=== PATIENT | male | born 1965 | race Caucasian/White ===

== ENCOUNTER 2017-05-18 09:22 | Day surgery (SDC) | payer OTHER ==
[~2017-05-18] VITALS: Ht 172.7 cm; Wt 88.1 kg
[~2017-05-18 09:22] MED LIST: ACET325T14 PO; IBUP-1223 PO
[2017-05-18] MEDS ORDERED: LACTATED RINGERS 1,000 ML IV SCH (09:43)
[2017-05-18 10:05] VITALS: BP 125/86
[2017-05-18] MEDS ORDERED: MIDAZOLAM 1 MG/ML, 2ML ONE (11:25)
[2017-05-18] MEDS ORDERED: PROPOFOL 50 ML ONE (11:25)
[2017-05-18] MEDS ORDERED: ACETAMINOPHEN 650 MG/20.3 ML UDC ONE (13:21)
[2017-05-18] MEDS ORDERED: PROMETHAZINE 25 MG/ML, 1ML IV PRN (13:30)
[2017-05-18] MEDS ORDERED: ONDANSETRON 2MG/ML, 2ML IVPush PRN (13:30)
[2017-05-18] MEDS ORDERED: ACETAMINOPHEN 325 MG TABLET PO PRN (13:30)
[2017-05-18] MEDS ORDERED: MEPERIDINE/PF 25MG/0.5ML IVPush PRN (13:30)
[2017-05-18] MEDS ORDERED: FENTANYL PF 100 MCG/2ML IV PRN (13:30)
== END 2017-05-18 15:10 | disposition home or self-care (01) ==
LOC: OUT 09:22
PROVIDERS: ATTEND Internal Medicine
DX: C21.0 Malignant neoplasm of anus, unspecified (principal); K62.6 Ulcer of anus and rectum; Z90.49 Acquired absence of other specified parts of digestive tract; Z72.89 Other problems related to lifestyle; Z88.5 Allergy status to narcotic agent
CPT/HCPCS: 45341; J2250; J2704; J7120

== ENCOUNTER → 2017-05-23 | Outpatient (CLI) | payer OTHER | END | disposition home or self-care (01) | LOC: CARD 14:58 | PROVIDERS: ATTEND Internal Medicine Hematology & Oncology | DX: C20 Malignant neoplasm of rectum (principal) | CPT/HCPCS: 94010; 94726; 94729 ==

== ENCOUNTER 2017-05-24 07:06 | Day surgery (SDC) | payer OTHER ==
[~2017-05-24] VITALS: Ht 172.7 cm; Wt 92.0 kg
[2017-05-24] MEDS ORDERED: LIDOCAINE 1%, 20ML ONE (07:53)
[2017-05-24] MEDS ORDERED: PLEASE ENTER HEIGHT AND WEIGHT MC SCH (08:00)
[2017-05-24] MEDS ORDERED: CEFAZOLIN 1,000 MG IM ONE (08:00)
[2017-05-24] MEDS ORDERED: SODIUM CHLORIDE 0.9% 1,000 ML IV SCH ×2 (08:00→08:07)
[2017-05-24] MEDS ORDERED: MIDAZOLAM 1 MG/ML, 2ML ONE ×2 (08:07)
[2017-05-24] MEDS ORDERED: FENTANYL PF 100 MCG/2ML ONE (08:07)
[2017-05-24] MEDS ORDERED: FLUMAZENIL 0.1 MG/1 ML, 5ML ONE (08:07)
[2017-05-24] MEDS ORDERED: NALOXONE 1 MG/ML, 2ML ONE (08:07)
[2017-05-24] MEDS ORDERED: CEFAZOLIN 1,000 MG IVPB ONE (08:30)
[2017-05-24] MEDS ORDERED: CEFAZOLIN PMX 1GM/50ML 50 ML IVPB ONE ×2 (08:30)
[2017-05-24] MEDS ORDERED: HYDROcodone/APAP 5/325 TABLET ONE (10:20)
[2017-05-24] MEDS ORDERED: HYDROcodone/APAP 5/325 TABLET PO ONE (10:30)
== END 2017-05-24 11:00 ==
LOC: OUT 07:06
PROVIDERS: ATTEND Internal Medicine Hematology & Oncology
DX: Z45.2 Encounter for adjustment and management of vascular access device (principal); C20 Malignant neoplasm of rectum; G43.909 Migraine, unspecified, not intractable, without status migrainosus; Z88.5 Allergy status to narcotic agent; Z90.49 Acquired absence of other specified parts of digestive tract; Z98.890 Other specified postprocedural states
CPT/HCPCS: 36561; 76937; 77001; 99156; 99157; C1788; C1894; J0690; J1642; J2250; J3010; J3490; J7030; J2310

== ENCOUNTER → 2017-05-25 | Outpatient (CLI) | payer OTHER | LOC: ROC 12:56 | PROVIDERS: ATTEND Radiology Radiation Oncology | DX: C21.0 Malignant neoplasm of anus, unspecified (principal) | CPT/HCPCS: 99214; G0463 ==

== ENCOUNTER → 2017-05-29 | Outpatient (CLI) | payer OTHER ==
[~2017-05-29] MED LIST changes: +OMNIPAQUE 350 MG/ML, 100ML BOTTLE ONE
== END | disposition home or self-care (01) ==
LOC: RAD 11:17
PROVIDERS: ATTEND Internal Medicine Hematology & Oncology
DX: K76.9 Liver disease, unspecified (principal); Z90.49 Acquired absence of other specified parts of digestive tract; C21.2 Malignant neoplasm of cloacogenic zone; C21.8 Malignant neoplasm of overlapping sites of rectum, anus and anal canal; C20 Malignant neoplasm of rectum
CPT/HCPCS: 71260; 74177; Q9967

== ENCOUNTER → 2017-06-06 | Outpatient (CLI) | payer OTHER | END | disposition home or self-care (01) | LOC: RAD 15:39 | PROVIDERS: ATTEND Radiology Radiation Oncology | DX: N32.3 Diverticulum of bladder (principal); C21.0 Malignant neoplasm of anus, unspecified; K61.0 Anal abscess | CPT/HCPCS: 72193; Q9967 ==

== ENCOUNTER → 2017-06-14 | Outpatient (CLI) | payer OTHER ==
[~2017-06-14] MED LIST changes: -OMNIPAQUE 350 MG/ML, 100ML BOTTLE ONE
== END | disposition home or self-care (01) ==
LOC: PETCFH 12:23
PROVIDERS: ATTEND Radiology Radiation Oncology
DX: K62.89 Other specified diseases of anus and rectum (principal); K21.0 Gastro-esophageal reflux disease with esophagitis
CPT/HCPCS: 78815; A9552

== ENCOUNTER → 2017-09-20 | Outpatient (CLI) | payer OTHER | END | disposition home or self-care (01) | LOC: PETCFH 07:13 | PROVIDERS: ATTEND Radiology Radiation Oncology | DX: C21.0 Malignant neoplasm of anus, unspecified (principal); R19.00 Intra-abdominal and pelvic swelling, mass and lump, unspecified site | CPT/HCPCS: A9552 ==

== ENCOUNTER → 2017-10-19 | Outpatient (CLI) | payer OTHER | END | disposition home or self-care (01) | LOC: ROC 08:10 | PROVIDERS: ATTEND Radiology Radiation Oncology | DX: C21.0 Malignant neoplasm of anus, unspecified (principal) | CPT/HCPCS: 99213; G0463 ==

== ENCOUNTER 2017-10-31 07:50 | Day surgery (SDC) | payer OTHER ==
[~2017-10-31] VITALS: Ht 172.7 cm; Wt 91.4 kg
[2017-10-31 08:55] VITALS: BP 129/83
[2017-10-31] MEDS ORDERED: SODIUM CHLORIDE 0.9% 1,000 ML IV SCH (09:14)
[2017-10-31] MEDS ORDERED: LIDOCAINE-MPF 2%, 2ML ONE ×2 (09:40→10:09)
[2017-10-31] MEDS ORDERED: FENTANYL PF 100 MCG/2ML ONE (09:50)
[2017-10-31] MEDS ORDERED: MIDAZOLAM 1 MG/ML, 5ML ONE (09:50)
[2017-10-31] MEDS ORDERED: NALOXONE 1 MG/ML, 2ML ONE (09:51)
[2017-10-31] MEDS ORDERED: FLUMAZENIL 0.1 MG/1 ML, 5ML ONE (09:51)
== END 2017-10-31 11:47 | disposition home or self-care (01) ==
LOC: OUT 07:50
PROVIDERS: ATTEND Radiology Radiation Oncology
DX: Z45.2 Encounter for adjustment and management of vascular access device (principal); C21.0 Malignant neoplasm of anus, unspecified; Z88.5 Allergy status to narcotic agent; Z72.89 Other problems related to lifestyle
CPT/HCPCS: 36590; 77001; 99156; 99157; J2250; J3010; J3490; J7030; J2310

== ENCOUNTER 2017-12-04 05:09 | Day surgery (SDC) | payer OTHER ==
[2017-11-28 13:03] VITALS: BP 116/79
[~2017-12-04] VITALS: Ht 172.7 cm; Wt 89.5 kg
[2017-12-04] MEDS ORDERED: LACTATED RINGERS 1,000 ML IV SCH (05:51)
[2017-12-04 05:54] VITALS: BP 116/79
[2017-12-04] MEDS ORDERED: LIDOCAINE-MPF 1%, 2ML INFIL ONE (06:00)
[2017-12-04] MEDS ORDERED: DEXAMETHASONE 4 MG/ML, 1ML ONE (07:47)
[2017-12-04] MEDS ORDERED: CEFAZOLIN 1,000 MG ONE (07:47)
[2017-12-04] MEDS ORDERED: PROPOFOL 10 MG/ML, 20ML ONE (07:47)
[2017-12-04] MEDS ORDERED: MEPERIDINE/PF 25MG/0.5ML IVPush PRN (08:30)
[2017-12-04] MEDS ORDERED: OXYcodone 5 MG/5 ML ORAL.SOL UDC PO PRN (08:30)
[2017-12-04] MEDS ORDERED: LORazepam 2 MG/ML, 1ML IVPush PRN (08:30)
[2017-12-04] MEDS ORDERED: LABETALOL 5MG/ML, 20ML IV PRN (08:30)
[2017-12-04] MEDS ORDERED: PROMETHAZINE 25 MG/ML, 1ML IV PRN (08:30)
[2017-12-04] MEDS ORDERED: hydrALAzine 20 MG/ML, 1ML IV PRN (08:30)
[2017-12-04] MEDS ORDERED: EPHEDRINE 50 MG/ML, 1ML IVPush PRN (08:30)
[2017-12-04] MEDS ORDERED: ACETAMINOPHEN 325 MG TABLET PO PRN (08:30)
[2017-12-04] MEDS ORDERED: ONDANSETRON ODT 8 MG PO PRN (08:30)
[2017-12-04] MEDS ORDERED: PROMETHAZINE 12.5 MG SUPP PR PRN (08:30)
[2017-12-04] MEDS ORDERED: MIDAZOLAM 1 MG/ML, 2ML IV PRN (08:30)
[2017-12-04] MEDS ORDERED: ALBUTEROL SULFATE 2.5 MG/3 ML NPPB PRN (08:30)
[2017-12-04] MEDS ORDERED: ONDANSETRON 2MG/ML, 2ML IV PRN (08:30)
[2017-12-04] MEDS ORDERED: FENTANYL PF 100 MCG/2ML IV PRN (08:30)
[2017-12-04] MEDS ORDERED: HYDROmorphone 1 MG/ML, 1ML IV PRN (08:30)
== END 2017-12-04 09:50 | disposition home or self-care (01) ==
LOC: OUT 05:09
PROVIDERS: ATTEND Internal Medicine
DX: C21.0 Malignant neoplasm of anus, unspecified (principal); Z90.49 Acquired absence of other specified parts of digestive tract; Z72.89 Other problems related to lifestyle; Z88.5 Allergy status to narcotic agent; Z88.8 Allergy status to other drugs, medicaments and biological substances
CPT/HCPCS: 45392; 88305; J0690; J1100; J2704; J7120

== ENCOUNTER → 2018-02-28 | Outpatient (CLI) | payer OTHER | END | disposition home or self-care (01) | LOC: ROC 10:16 | PROVIDERS: ATTEND Radiology Radiation Oncology | DX: Z08 Encounter for follow-up examination after completed treatment for malignant neoplasm (principal); C21.0 Malignant neoplasm of anus, unspecified; Z88.6 Allergy status to analgesic agent | CPT/HCPCS: 99212; G0463 ==

== ENCOUNTER 2018-04-17 09:37 | Outpatient (CLI) | payer OTHER | END 2018-04-17 23:59 | disposition home or self-care (01) | LOC: ROC 09:37 | PROVIDERS: ATTEND Radiology Radiation Oncology | DX: C21.0 Malignant neoplasm of anus, unspecified (principal) | CPT/HCPCS: 99213; G0463 ==

== ENCOUNTER → 2018-09-12 | Outpatient (CLI) | payer OTHER ==
[~2018-09-12] MED LIST changes: +OMNIPAQUE 350 MG/ML, 100ML BOTTLE ONE
== END | disposition home or self-care (01) ==
LOC: CFH 14:02
PROVIDERS: ATTEND Radiology Radiation Oncology
DX: K76.9 Liver disease, unspecified (principal); C21.0 Malignant neoplasm of anus, unspecified
CPT/HCPCS: 71260; 74177; Q9967

== ENCOUNTER → 2018-09-24 | Outpatient (CLI) | payer OTHER ==
[~2018-09-24] MED LIST changes: -OMNIPAQUE 350 MG/ML, 100ML BOTTLE ONE
== END | disposition home or self-care (01) ==
LOC: ROC 08:34
PROVIDERS: ATTEND Radiology Radiation Oncology
DX: C21.0 Malignant neoplasm of anus, unspecified (principal)
CPT/HCPCS: 99213; G0463

== ENCOUNTER 2019-09-21 17:32 | Inpatient (IN) | payer OTHER ==
[~2019-09-21] VITALS: Ht 172.7 cm; Wt 83.7 kg
[~2019-09-21 17:32] MED LIST changes: +GABA300C10 PO; +ZOLP10TA PO
--- NOTE | 2019-09-21 17:58 | NUR ---
54 YR OLD MALE TO ROOM FROM TRIAGE, PER PTS SLURRED SPEECH BEGAN ABOUT 4PM, PT WITH C/O VOMITING, SLURRED SPEECH, LEFT FACE DROOPING (APPROX 1 HR AGO), CP.
--- NOTE | 2019-09-21 18:03 | NUR ---
PT TO CT VIA [facility]
[2019-09-21] MEDS ORDERED: DIPHENHYDRAMINE 50 MG/ML, 1ML IV STA (18:12)
[2019-09-21 18:13] LABS: BASOPHILS # (AUTO) 0.01 x10^3/uL (0-0.1); BASOPHILS % (AUTO) 0 % (0-1); EOSINOPHILS # (AUTO) 0.19 x10^3/uL (0-0.4); EOSINOPHILS % (AUTO) 4 % (1-7); LYMPHOCYTES # (AUTO) 0.78 x10^3/uL (1-3.4); LYMPHOCYTES % (AUTO) 15 % (22-44); MD NO; MEAN CORPUSCULAR HEMOGLOBIN 31.1 pg (27.5-34.5); MEAN CORPUSCULAR HGB CONC 34.3 g/dL (33.2-36.2); MEAN CORPUSCULAR VOLUME 90.6 fL (81-97); MEAN PLATELET VOLUME 7.3 fL (7.4-10.4); MONOCYTES # (AUTO) 0.23 x10^3/uL (0.2-0.8); MONOCYTES % (AUTO) 5 % (2-9); NEUTROPHILS # (AUTO) 3.99 x10^3/uL (1.8-6.8); NEUTROPHILS % (AUTO) 77 % (42-75); PLATELET COUNT 267 x10^3/uL (130-400); RED BLOOD COUNT 4.68 x10^6/uL (4.38-5.82); RED CELL DISTRIBUTION WIDTH 12.6 % (9.4-14.8)
--- NOTE | 2019-09-21 18:13 | NUR ---
DR GARCIA VIA [facility] TALKING TO PTS
--- NOTE | 2019-09-21 18:14 | NUR ---
PT RETURN TO ROOM
[2019-09-21 18:23] LABS: INTERNATIONAL NORMALIZED RATIO 0.92 (0.93-1.1); PROTHROMBIN TIME 9.7 Seconds (9.6-11.5)
[2019-09-21] MEDS ORDERED: OMNIPAQUE 350 MG/ML, 100ML BOTTLE ONE (18:24)
[2019-09-21] MEDS ORDERED: DEXAMETHASONE 4 MG/ML, 1ML IVPush STA (18:26)
[2019-09-21] MEDS ORDERED: PROCHLORPERAZINE 5 MG/ML, 2ML IVPush STA (18:26)
[2019-09-21] MEDS ORDERED: BUTA-177 PO (18:34)
[2019-09-21] MEDS ORDERED: PREG75CA PO (18:34)
--- NOTE | 2019-09-21 18:46 | NUR ---
PER PT, HAD A MIGRAINE THIS AM (04) TOOK [place] AND IT WENT AWAY. DENIES [facility]AR[facility] AT THIS TIME
--- NOTE | 2019-09-21 18:51 | NUR ---
REPORT TO [facility]
[2019-09-21] MEDS ORDERED: DIPHENHYDRAMINE 50 MG/ML, 1ML ONE (18:53)
[2019-09-21] MEDS ORDERED: DEXAMETHASONE 4 MG/ML, 1ML ONE (18:53)
[2019-09-21] MEDS ORDERED: PROCHLORPERAZINE 5 MG/ML, 2ML ONE (18:53)
--- NOTE | 2019-09-21 19:06 | NUR ---
REPORT FROM [facility] ASSUMED CARE OF PT AT THIS TIME MEDICATED PER MD ORDER
--- NOTE | 2019-09-21 19:15 | NUR ---
MRI FORM COMPLETE AND FAXED TO MRI
--- NOTE | 2019-09-21 19:36 | NUR ---
PT TO IMAGING AT THIS TIME
[2019-09-21] MEDS ORDERED: ASPIRIN 325 MG TABLET PO STA (19:38)
[2019-09-21] MEDS ORDERED: ASPIRIN 325 MG TABLET ONE (19:54)
[2019-09-21 19:55] LABS: TROPONIN I < 0.015 ng/mL (0.000-0.045)
--- NOTE | 2019-09-21 20:03 | NUR ---
PT BACK FROM MRI, ANGELICA SANTOS AT BS FOR ADMIT
[2019-09-21] MEDS ORDERED: DOCUSATE 100 MG CAPSULE PO PRN (20:30)
[2019-09-21] MEDS ORDERED: POLYETHYLENE GLYCOL 17 GM PACKET PO PRN (20:30)
[2019-09-21] MEDS ORDERED: BISACODYL 10 MG SUPP PR PRN (20:30)
[2019-09-21] MEDS ORDERED: ACETAMINOPHEN 650 MG/20.3 ML UDC PO PRN (20:30)
[2019-09-21] MEDS ORDERED: SENNA/DOCUSATE TABLET PO PRN (20:30)
[2019-09-21] MEDS ORDERED: ONDANSETRON 2MG/ML, 2ML IVPush PRN (20:30)
[2019-09-21] MEDS ORDERED: ZOLPIDEM 10MG TABLET PO PRN (20:30)
--- NOTE | 2019-09-21 20:49 | NUR ---
REPORT TO TRUMAN RIZZO TO CARD TELE WITH TECH
[2019-09-21] MEDS ORDERED: SODIUM CHLORIDE 0.9% 500 ML IV SCH (21:00)
[2019-09-21 21:06] VITALS: BP 131/82
[2019-09-21] MEDS: PREGABALIN 75 MG CAPSULE PO SCH (23:39)
[2019-09-21] MEDS: ATORVASTATIN 80 MG TABLET PO SCH (23:39)
[2019-09-21] MEDS: HEPARIN 5,000 UNITS/ML, 1ML SQ SCH (23:40)
[2019-09-22 01:27] LABS: TROPONIN I < 0.015 ng/mL (0.000-0.045)
[2019-09-22 02:00] VITALS: BP 117/76
[2019-09-22] MEDS: BUTALB/APAP/CAFFEINE 50MG/325MG/40MG PO PRN ×2 (03:38→17:35)
[2019-09-22 06:26] LABS: BASOPHILS # (AUTO) 0.01 x10^3/uL (0-0.1); BASOPHILS % (AUTO) 0 % (0-1); EOSINOPHILS # (AUTO) 0.03 x10^3/uL (0-0.4); EOSINOPHILS % (AUTO) 0 % (1-7); LYMPHOCYTES # (AUTO) 0.57 x10^3/uL (1-3.4); LYMPHOCYTES % (AUTO) 8 % (22-44); MD NO; MEAN CORPUSCULAR HEMOGLOBIN 30.6 pg (27.5-34.5); MEAN CORPUSCULAR HGB CONC 33.5 g/dL (33.2-36.2); MEAN CORPUSCULAR VOLUME 91.3 fL (81-97); MEAN PLATELET VOLUME 7.3 fL (7.4-10.4); MONOCYTES # (AUTO) 0.21 x10^3/uL (0.2-0.8); MONOCYTES % (AUTO) 3 % (2-9); NEUTROPHILS # (AUTO) 6.08 x10^3/uL (1.8-6.8); NEUTROPHILS % (AUTO) 88 % (42-75); PLATELET COUNT 256 x10^3/uL (130-400); RED BLOOD COUNT 4.57 x10^6/uL (4.38-5.82); RED CELL DISTRIBUTION WIDTH 12.5 % (9.4-14.8)
[2019-09-22 06:38] VITALS: BP 128/85
[2019-09-22 06:50] LABS: ALANINE AMINOTRANSFERASE 31 U/L (12-78); ALBUMIN 3.5 g/dL (3.4-5.0); ANION GAP 11 mmol/L (5-15); CALCIUM 8.9 mg/dL (8.5-10.1); CHLORIDE 107 mmol/L (98-107); CHOLESTEROL, TOTAL 223 mg/dL (140-239); CREATININE 1.05 mg/dL (0.7-1.3)
[2019-09-22 06:54] LABS: ALKALINE PHOSPHATASE 54 U/L (45-117); BILIRUBIN,TOTAL 0.9 mg/dL (0.2-1.0); CHOL/HDL RATIO 4.4; HDL CHOL % 23 % (26-37); HDL CHOLESTEROL (DIRECT) 51 mg/dL (40-60); LDL CHOLESTEROL,CALCULATED 140 mg/dL (54-169); LDL/HDL RATIO 2.7 (0.5-3.0); TRIGLYCERIDES 158 mg/dL (50-200); TROPONIN I < 0.015 ng/mL (0.000-0.045); VLDL CHOLESTEROL 32 mg/dL (0-25)
[2019-09-22] MEDS: ASPIRIN 81 MG TABLET CHEW PO/NG SCH (08:30)
[2019-09-22] MEDS: HEPARIN 5,000 UNITS/ML, 1ML SQ SCH ×2 (08:31→15:49)
[2019-09-22 12:07] VITALS: BP 134/77
[2019-09-22 19:44] VITALS: BP 114/79
[2019-09-22] MEDS: PREGABALIN 75 MG CAPSULE PO SCH (20:53)
[2019-09-22] MEDS: ATORVASTATIN 80 MG TABLET PO SCH (20:53)
[2019-09-23] MEDS: HEPARIN 5,000 UNITS/ML, 1ML SQ SCH ×2 (00:09→07:52)
[2019-09-23 00:22] VITALS: BP 119/78
[2019-09-23 07:19] VITALS: BP 136/89
[2019-09-23] MEDS: ASPIRIN 81 MG TABLET CHEW PO/NG SCH (07:52)
[2019-09-23] MEDS ORDERED: REGADENOSON 0.4 MG/5 ML SYRINGE ONE (08:09)
[2019-09-23] MEDS ORDERED: THIAMINE 100MG TABLET PO SCH (09:00)
[2019-09-23] MEDS ORDERED: FOLIC ACID 1 MG TABLET PO SCH (09:00)
[2019-09-23 12:20] VITALS: BP 132/90
[2019-09-23] MEDS ORDERED: ATOR20TA37 PO (15:17)
[2019-09-23] MEDS ORDERED: ASPI-430 PO (15:17)
== END 2019-09-23 16:00 | disposition home or self-care (01) | DRG 102 ==
LOC: ED 19:55 → EDIP 21:05 → 5SO 21:06 → DCLOUNGE 09-23 15:49
PROVIDERS: ADMIT Internal Medicine; ATTEND Internal Medicine
DX: G43.109 Migraine with aura, not intractable, without status migrainosus (principal); N17.0 Acute kidney failure with tubular necrosis; R07.89 Other chest pain; R29.706 NIHSS score 6; F10.10 Alcohol abuse, uncomplicated; E78.5 Hyperlipidemia, unspecified; R73.9 Hyperglycemia, unspecified; G62.9 Polyneuropathy, unspecified; R29.810 Facial weakness; Z90.49 Acquired absence of other specified parts of digestive tract; Z88.5 Allergy status to narcotic agent; Z82.5 Family history of asthma and other chronic lower respiratory diseases; X50.0XXA Overexertion from strenuous movement or load, initial encounter; Z85.048 Personal history of other malignant neoplasm of rectum, rectosigmoid junction, and anus
CPT/HCPCS: 36415; 70450; 70496; 70498; 70551; 71045; 78452; 80047; 80053; 80061; 83036; 84484; 85025; 85610; 85730; 93005; 93017; 93306; 96374; 96375; 99285; G0378; J1100; J1644; J2785; Q9967; 92523-GN; A9502; C9898; J0780; J1200; J7040

== ENCOUNTER → 2019-11-28 | Outpatient (CLI) | payer OTHER ==
[~2019-11-28] MED LIST changes: +ASPI-430 PO; +ATOR20TA37 PO; +BUTA-177 PO; +PREG75CA PO
== END | disposition home or self-care (01) ==
LOC: STAR 14:59
PROVIDERS: ATTEND Anesthesiology
DX: Z01.812 Encounter for preprocedural laboratory examination (principal); Z20.828 Contact with and (suspected) exposure to other viral communicable diseases
CPT/HCPCS: 36415; 87635

== ENCOUNTER 2019-12-03 05:51 | Day surgery (SDC) | payer OTHER ==
[~2019-12-03] VITALS: Ht 172.7 cm; Wt 87.3 kg
[2019-12-03] MEDS ORDERED: VERA100C4 PO (06:16)
[2019-12-03] MEDS ORDERED: ASPI-515 PO (06:16)
[2019-12-03 06:23] VITALS: BP 145/92
[2019-12-03] MEDS ORDERED: CHLORHEXIDINE 15 ML UDC MM STA (06:36)
[2019-12-03] MEDS ORDERED: LACTATED RINGERS 1,000 ML IV SCH (06:36)
[2019-12-03] MEDS ORDERED: MIDAZOLAM 1 MG/ML, 2ML ONE (07:43)
[2019-12-03] MEDS ORDERED: EPHEDRINE 50 MG/ML, 1ML ONE (07:43)
[2019-12-03] MEDS ORDERED: PROPOFOL 10 MG/ML, 20ML ONE (07:43)
[2019-12-03] MEDS ORDERED: DEXAMETHASONE 4 MG/ML, 5ML ONE (07:43)
[2019-12-03] MEDS ORDERED: MIDAZOLAM 1 MG/ML, 2ML IV PRN (08:00)
[2019-12-03] MEDS ORDERED: ACETAMINOPHEN 325 MG TABLET PO PRN (08:00)
[2019-12-03] MEDS ORDERED: LABETALOL 5MG/ML, 20ML IV PRN (08:00)
[2019-12-03] MEDS ORDERED: DIPHENHYDRAMINE 50 MG/ML, 1ML IVPush PRN (08:00)
[2019-12-03] MEDS ORDERED: FENTANYL PF 100 MCG/2ML IV PRN (08:00)
[2019-12-03] MEDS ORDERED: OXYcodone 5 MG/5 ML ORAL.SOL UDC PO PRN (08:00)
[2019-12-03] MEDS ORDERED: DIAZEPAM 5 MG/ML, 2ML IVPush PRN (08:00)
[2019-12-03] MEDS ORDERED: MEPERIDINE/PF 25MG/0.5ML IVPush PRN (08:00)
[2019-12-03] MEDS ORDERED: ALBUTEROL SULFATE 2.5 MG/3 ML NPPB PRN (08:00)
[2019-12-03] MEDS ORDERED: PROMETHAZINE 12.5 MG SUPP PR PRN (08:00)
[2019-12-03] MEDS ORDERED: HYDROmorphone 1 MG/ML, 1ML INJ IVPush PRN (08:00)
[2019-12-03] MEDS ORDERED: EPHEDRINE 50 MG/ML, 1ML IVPush PRN (08:00)
[2019-12-03] MEDS ORDERED: hydrALAzine 20 MG/ML, 1ML IV PRN (08:00)
[2019-12-03] MEDS ORDERED: PROMETHAZINE 25 MG/ML, 1ML IVPush PRN (08:00)
[2019-12-03] MEDS ORDERED: ONDANSETRON 2MG/ML, 2ML IVPush PRN (08:00)
== END 2019-12-03 09:15 | disposition home or self-care (01) ==
LOC: OUT 05:51
PROVIDERS: ATTEND Internal Medicine
DX: Z08 Encounter for follow-up examination after completed treatment for malignant neoplasm (principal); G43.909 Migraine, unspecified, not intractable, without status migrainosus; N42.9 Disorder of prostate, unspecified; Z72.89 Other problems related to lifestyle; Z85.048 Personal history of other malignant neoplasm of rectum, rectosigmoid junction, and anus; Z88.5 Allergy status to narcotic agent; Z91.011 Allergy to milk products; Z92.21 Personal history of antineoplastic chemotherapy
CPT/HCPCS: 45341; J1100; J2250; J2704; J7120

== ENCOUNTER 2020-11-23 06:44 | Day surgery (SDC) | payer OTHER ==
[~2020-11-23] VITALS: Ht 172.7 cm; Wt 89.0 kg
[~2020-11-23 06:44] MED LIST changes: +ASPI-963 PO; +VERA100C4 PO
[2020-11-23] MEDS ORDERED: ASPI81TA45 PO (07:37)
[2020-11-23] MEDS ORDERED: ASPI1TAB31 PO (07:38)
[2020-11-23 07:42] VITALS: BP 136/89
[2020-11-23] MEDS ORDERED: CHLORHEXIDINE 15 ML UDC ONE (07:43)
[2020-11-23] MEDS ORDERED: CHLORHEXIDINE 15 ML UDC PO ONE (08:00)
[2020-11-23] MEDS ORDERED: LACTATED RINGERS 1,000 ML IV SCH (08:00)
[2020-11-23] MEDS ORDERED: omeprozole PO (08:08)
[2020-11-23] MEDS ORDERED: PROPOFOL 10 MG/ML, 20ML ONE (08:44)
[2020-11-23] MEDS ORDERED: morphine SULFATE 10 MG/ML, 1ML IVPush PRN (09:00)
[2020-11-23] MEDS ORDERED: HYDROmorphone 1 MG/ML, 1ML INJ IVPush PRN (09:00)
[2020-11-23] MEDS ORDERED: FENTANYL PF 100 MCG/2ML IV PRN (09:00)
== END 2020-11-23 10:30 | disposition home or self-care (01) ==
LOC: OUT 06:44
PROVIDERS: ATTEND Internal Medicine Geriatric Medicine
DX: C21.0 Malignant neoplasm of anus, unspecified (principal); K57.30 Diverticulosis of large intestine without perforation or abscess without bleeding; N42.89 Other specified disorders of prostate; K21.9 Gastro-esophageal reflux disease without esophagitis; G43.909 Migraine, unspecified, not intractable, without status migrainosus; G62.9 Polyneuropathy, unspecified; Z79.1 Long term (current) use of non-steroidal anti-inflammatories (NSAID); Z79.891 Long term (current) use of opiate analgesic; Z88.5 Allergy status to narcotic agent; Z79.899 Other long term (current) drug therapy; Z91.011 Allergy to milk products; Z90.49 Acquired absence of other specified parts of digestive tract; Z80.9 Family history of malignant neoplasm, unspecified
CPT/HCPCS: 45391; J2704; J7120